=== PATIENT | female | born 1955 | race African-American/Black ===

== ENCOUNTER 2019-04-08 09:09 | Emergency (ER) | payer BC, OTHER ==
[2019-04-08 09:17] VITALS: BP 144/76; PULSE 78; TEMP 97.5; BMI 27.4
[2019-04-08] MEDS ORDERED: IBUPROFEN 400 MG TABLET (FP) PO ONE ×2 (09:34→09:40)
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
== END 2019-04-08 10:03 | disposition home or self-care (01) ==
LOC: JERFT 09:09
DX: R52 Pain, unspecified (principal); V43.52XA Car driver injured in collision with other type car in traffic accident, initial encounter; Y93.89 Activity, other specified; Y92.410 Unspecified street and highway as the place of occurrence of the external cause; I10 Essential (primary) hypertension
CPT/HCPCS: 99281-25